=== PATIENT | female | born 2000 | race Caucasian/White ===

== ENCOUNTER 2020-01-07 18:13 | Emergency (ER) | payer OTHER, SELFPAY ==
[2020-01-07 18:17] VITALS: BP 128/78; PULSE 99; RESP 98; O2SAT 100; BMI 19.8
[2020-01-07] MEDS: PROPARACAINE 0.5% OPHTH SOL 1 DROPS EYE-RIGHT (18:42)
[2020-01-07] MEDS: FLUORESCEIN 1 MG STRIP EYE-RIGHT (18:42)
[2020-01-07] MEDS: LIDO 1%/SOD BICARB 8.4% (10ML) 10 ML SYRINGE INJ (18:43)
[2020-01-07 19:37] VITALS: BP 122/80; PULSE 68; RESP 20; TEMP 37; O2SAT 100
--- NOTE | 2020-01-08 03:06 | ED_ITS ---
HPI - Animal Bite General Chief Complaint: Animal Bite Stated Complaint: DOG BITE TO THE FACE Time Seen by Provider: 01/07/20 18:20 Source: patient Mode of arrival: Ambulatory Limitations: no limitations History of Present Illness HPI narrative: 19F smoker without contributing medical history presents with the chief complaint of a dogbite on the right side of her face just prior to arrival. She had been drinking playing with and neighbor dog when it jumped up and bit her in the face. The dog has all of its shots up-to-date and can be observed. Patient's tetanus is current. Though it was near her eye she states she does not have any eye pain or change in vision. She is otherwise well and free of complaint. MD complaint: animal bite Onset (ago): minute(s) Animal: dog Description of animal: immunizations UTD Mechanism: bite Location: face Pain description: sharp Context: playing with animal Associated symptoms: bleeding Treatments prior to arrival: wound dressing(s) and irrigation Related Data Patient tetanus UTD: Yes Previous Rx's Medication Instructions Recorded amoxicillin-pot clavulanate 1 tab PO BID #20 tab 01/07/20 [Augmentin] hydrocodone-acetaminophen 1 tab PO Q4-6H PRN #10 tab 01/07/20 Allergies Allergy/AdvReac Type Severity Reaction Status Date / Time No Known Allergies AdvReac Verified 01/07/20 18:25 Review of Systems Constitutional Constitutional: Denies chills, Denies fatigue, Denies fever(s), Denies frequent falls, Denies lethargy and Denies weakness Eyes Eyes: Denies change in vision, Denies eye discharge, Denies irritation and Denies loss of vision ENT Ears, Nose, Mouth, and Throat: Denies change in voice, Denies dizziness, Denies neck pain, Denies sore throat and Denies throat swelling Cardiovascular Cardiovascular: Denies chest pain, Denies irregular heart rhythm, Denies lightheadedness, Denies palpitations, Denies dyspnea, Denies dyspnea on exertion and Denies orthopnea Respiratory Respiratory: Denies cough, Denies dyspnea, Denies dyspnea on exertion and Denies wheezing Gastrointestinal Gastrointestinal: Denies abdominal pain, Denies change in bowel habits, Denies diarrhea, Denies nausea and Denies vomiting Musculoskeletal Musculoskeletal: Denies neck pain and Denies numbness Integumentary/Breasts Skin/Breast: Denies pruritus, Denies erythema, Denies rash and Reports wounds Neurologic Neurologic: Denies behavioral changes, Denies confusion, Denies dizziness, Denies frequent falls, Denies loss of vision, Denies numbness and Denies weakness Psychiatric Psychiatric: Denies anxiety, Denies behavioral changes, Denies confusion, Denies depression, Denies homicidal ideation and Denies suicidal ideation Endocrine Endocrine: Denies fatigue, Denies flushing and Denies palpitations Hematologic/Lymphatic Hematologic/Lymphatic: Denies easy bruising Allergic/Immunologic Allergic/Immunologic: Denies urticaria, Denies throat swelling and Denies wheezing Patient History Social History Smoking Status: Current some day smoker Smoking Status: Current some day smoker tobacco type: e-cigarettes alcohol intake frequency: a few times a week Substance Use Type: does not use Exam Narrative Exam Narrative: GENERAL: [19] year old patient appears stated age. Well- nourished, well-developed patient, in mild distress. Tearful, anxious. GCS 15 HEAD: 2.5cm irregular laceration lateral to Right eye. Very minimal upper lid involvment, does not cross margin. Not through and through. No FB noted. Minimal bleeding. c. EYES: No redness, watering. NO dye uptake with use of fluoroscein under UV light. Pupils equal round and reactive. Extraocular motions intact. No scleral icterus. No injection or drainage. ENT: Nose without bleeding, purulent drainage. Throat without erythema, tonsillar hypertrophy or exudate. Airway patent. NECK: Trachea midline. Non tender CARDIOVASCULAR: Regular rate and rhythm without murmurs, gallops, or rubs. RESPIRATORY: Clear to auscultation. Breath sounds equal bilaterally. No wheezes, rales, or rhonchi. GASTROINTESTINAL: Abdomen soft, non-tender, nondistended. EXTREMITIES: No edema or joint tenderness. BACK: Nontender without deformity or crepitance. No flank tenderness. NEURO: AOx3. SKIN: No rash or erythema of visible areas Initial Vital Signs Initial Vital Signs: Vital Signs Pulse Rate 99 H 01/07/20 18:17 Respiratory Rate 98 H 01/07/20 18:17 Blood Pressure 128/78 01/07/20 18:17 Pulse Oximetry 100 01/07/20 18:17 Procedures Laceration Repair Laceration 1: Site: face Side (If applicable): right Size (cm): 2.5 Description: stellate, irregular and clean Depth: simple, single layer Local Anesthetic: lidocaine 1% Pre-repair: wound explored, irrigated extensively and deep structures intact Skin layer closed with: nylon Size (cm): 6-0 Number of sutures: 9 Technique: simple, interrupted Course Orders Ordered: Discontinued Medications Fluorescein Sodium (Ful-Leatha) 1 mg EYE-RIGHT NOW ONE Stop: 01/07/20 18:28 Last Admin: 01/07/20 18:42 Dose: 1 mg Documented by: DENIZ Lidocaine/Sodium Bicarbonate (Buffered Lidocaine 10 Ml Syr) 10 ml INJ NOW ONE Stop: 01/07/20 18:27 Last Admin: 01/07/20 18:43 Dose: 10 ml Documented by: DENIZ Proparacaine HCl (Parcaine 0.5% Ophth Sepideh) 1 drops EYE-RIGHT NOW ONE Stop: 01/07/20 18:27 Last Admin: 01/07/20 18:42 Dose: 1 drop Documented by: DENIZ Vital Signs Vital signs: Vital Signs - 8 hr 01/07/20 19:37 Temperature 98.6 F Pulse Rate 68 Respiratory Rate 20 Blood Pressure 122/80 Pulse Oximetry 100 Discharge Plan Departure Patient Disposition: Home Clinical Impression: Bite by animal Complex laceration of face Qualifiers: Encounter type: initial encounter Qualified Code(s): S01.91XA - Laceration without foreign body of unspecified part of head, initial encounter Discharge Date/Time: 01/07/20 19:37 Instructions: DI for Dog Bite Activity Restrictions/Additional Instructions: *You have been diagnosed with [complex facial laceration status post dog bite] *What to do: *Take medications as directed *Follow up with your primary care provider in 2-3 days, call for an appointment. Let them know you were seen in the Emergency Department and that we ask that you be seen in follow up *Return to ER if you should have any new, worsening or concerning symptoms Prescriptions: New hydrocodone-acetaminophen 5-325 mg tablet 1 tab PO Q4-6H PRN (Reason: pain) Qty: 10 RF: 0 amoxicillin-pot clavulanate [Augmentin] 875-125 mg tablet 1 tab PO BID Qty: 20 RF: 0
== END 2020-01-07 19:37 | disposition home or self-care (01) ==
LOC: ED 19:34
PROVIDERS: Emergency Provider Emergency Medicine
DX: S01.85XA Open bite of other part of head, initial encounter (principal); S01.91XA Laceration without foreign body of unspecified part of head, initial encounter; W54.0XXA Bitten by dog, initial encounter
CPT/HCPCS: 12011; 99283